=== PATIENT | female | born 1975 | race Caucasian/White ===

== ENCOUNTER 2017-07-30 13:21 | Emergency (ER) | payer MEDICARE ==
[~2017-07-30] VITALS: Ht 162.6 cm; Wt 47.6 kg
[~2017-07-30 13:21] MED LIST: BUSPAR 5MG TAB5 MG PO; CRESTOR5 MG PO; CYMBALTA60 MG PO; OXCARBAZEPINE150 M1 PO
[2017-07-30] MEDS ORDERED: LYRICA50 MG PO (13:55)
--- NOTE | 2017-07-30 14:09 | [facility]gent Treatment [facility] Report ---
History of Present Issue Date/Time Seen by Provider 07/30/17 9818 Visit Reason Pt arrived:Walked Presenting Problem:sore throat and body aches and sinus pressure Location if Accident: Onset of symptoms date/time:/ or onset unknown for:MEDICAL HX UNKNOWN Have you (or family members/close friends) recently traveled outside the [place]? N If Yes, where/when: Have you had exposure to infectious disease within the past month? TB? Other? Specify: c/o "I think strep". sore throat, aches, PND, rhinorrhea, nasal congestion starting yesterday. Sore throat worse last night. Daughter with strep last week. pt thinks she saw white blisters in throat. No known fevers. Hasn't taken or tried anything for symptoms. Source patient Exam Limitations no limitations ALLERGIES Coded Allergies: No Known Allergies (01/15/17) Home Medications Reported Medications DULOXETINE HCL (Cymbalta 60MG) 60 MG PO DAILY Oxcarbazepine (Oxcarbazepine 150MG TAB) 150 MG PO BID Buspirone Hcl (Buspirone HCl) (Unknown Dose) PO UNKNOWN Rosuvastatin Calcium (Crestor) (Unknown Dose) PO QHS Pregabalin (Lyrica 50MG) 50 MG PO TID History Medical History General CAD? No Angina: No CT: No Hypertension? No Hyperlipidemia? Yes CHF? No DVT? No PE? No COPD? No Asthma? No Anemia? No GERD? No Gastric ulcers? No GI Bleed? No Hernia? No Thyroid Problems? No Hypothyroidism? No CVA? No Seizures? No Diabetes? No Renal Insuffiency? No UTI? No Stones? No BPH? No GB Disease: No Nephritic Syndrome? No Asplenia? No Hepatitis? No Sickle Cell Disease? No Arthritis? No Migraines? No Cataracts? No Glaucoma? No MRSA? No HIV? No TB? No Anxiety? Yes Depression? No Cancer? No More? No Immunization HX DT/Tetanus 1-4 Years Ago Surgical Hx Previous Surgery?N Social History Smoking Hx Smoker: Current Every Day Smoker Tobacco: Yes Type Cigarettes Packs/day < 1 Pack Alcohol Alcohol: No Review of Systems All Other Systems Reviewed and Negative Constitutional see HPI Eyes denies drainage ENT see HPI, ear pain ("not pain. Popping and itching). denies: ear discharge, throat swelling. Respiratory cough (mild, intermittent), denies shortness of breath, denies wheezing Cardiovascular denies chest pain Gastrointestinal denies no symptoms reported Skin denies rash Psychiatric/Neurological see HPI Physical Exam Vital Signs Vital Signs Date Time Temp Pulse Resp B/P Pulse O2 O2 Flow FiO2 Ox Delivery Rate 07/30 1352 98.2 79 18 126/78 98 General Appearance normal appearance, no apparent distress Eye Exam - bilateral eye normal exam Ear, Nose, Throat clear fluid bubbles behind jaskaran TMs, no bulging, normal otherwise; nasal congestion; clear rhinorrhea; thick clear PND and cobblestoning Neck non-tender, supple Respiratory Status No: respiratory distress, productive cough, non productive cough. Lung Sounds anterior: lungs clear. posterior: lungs clear. bilateral: lungs clear. Cardiovascular regular rate/rhythm, no peripheral edema, no murmur Neurologic alert Mental status normal mood/affect Skin normal color, warm/dry Lymphatic no adenopathy Medical Decision Making LABS/Meds/Orders Pt receiving controlled substance in ED? No Results/Orders Laboratory Tests 07/30/17 1350: Group A Strep Screen NOT DETECTED Orders Procedure Date/time Status [facility] STREP SCREEN 07/30 1355 Complete Departure Departure Time of Disposition 1433 Disposition DC Home or Self Care(routine) Clinical Impression Primary Impression: Upper respiratory virus Secondary Impressions: Pharyngitis Qualifiers: Pharyngitis/tonsillitis etiology: unspecified etiology Qualified Code: J02.9 - Acute pharyngitis, unspecified Condition STABLE Referrals NO REFERRAL Follow up with primary care IMMEDIATELY for new or worsening symptoms OR no noticeable improvement over the next 48-72 hours. 911 for difficulty breathing or swallowing. Patient Instructions DI for Viral Pharyngitis, DI for Viral Upper Respiratory Infection -- Adult Additional Instructions * No sign of bacterial infection. Likely viral. Virus can take 7-14 days to run their course * Monitor Temp. Tylenol every 4 hours as needed and/or ibuprofen every 6 hours as needed (as long as your primary care doctor has told you that it is ok to take both) for fever/aches/pain. ER if fever no less than 101 despite tylenol and ibuprofen * Encourage fluids, water, gatorade, powerade, pedialyte if infant/toddler/child * warm salt water gargles * warm fluids * sore throat lozenges * sleep elevated * humidifier/vaporizer * flonase 2 sprays each nostril daily but may take 2-3 days to notice improvement with it. * Bromfed may cause drowsiness. Know how it effects you (or your child) before driving, caring for small children, or sending your child to school. No other antihistamines/allergy medications while taking bromfed. * * Your throat swab was sent for culture. Those results are typically sent to your primary care. Be sure to follow up in 2-3 days if no improvement so they can review those results and treat if necessary. If you don't have primary care, I recommend you get one but in the mean time, you will have to return to a walk in clinic. Discharge Counseling Counseled pt/family regarding diagnosis, test results, medications/RX, home care, follow up needs Prescriptions Current Visit Scripts D-METHORPHAN HB/P-EPD HCL/BPM (Bromfed Dm Cough Syrup) 10 ML PO QIDP PRN cough #240 ML Fluticasone Propionate (Flonase 50 Mcg Nasal [place]) 2 SPRAY NA DAILY #1 BOT at 1433
[2017-07-30] MEDS ORDERED: FLONASE 50 MCG16 GM (14:35)
[2017-07-30] MEDS ORDERED: BROMFED DM COU118 ML PO (14:35)
[2017-07-30 14:37] VITALS: BP 126/78
== END 2017-07-30 14:38 | disposition home or self-care (01) ==
LOC: UTC 13:21
DX: J02.8 Acute pharyngitis due to other specified organisms (principal); F17.210 Nicotine dependence, cigarettes, uncomplicated; Z79.899 Other long term (current) drug therapy; E78.5 Hyperlipidemia, unspecified

== ENCOUNTER → 2017-08-17 | Outpatient (CLI) | payer MEDICARE ==
--- NOTE | 2017-08-18 05:35 | RADIOLOGY REPORT PS360 ---
MRI-L-SPINE W/O HISTORY: Low back pain with bilateral leg pain numbness and tingling BILATERAL LOW BACK PAIN W/RT SIDE SCIATICA ORDERING PHYSICIAN: Vladimir Danielson MD PATIENT AGE: 41 years COMPARISON: None TECHNIQUE: Standard multiplanar multiecho sequences are performed without contrast. 3-D MIP and myelographic images are also rendered and reviewed FINDINGS: There is normal alignment. The spinal cord ends at the L1 level. T12-L1, L1-L2, L2-L3, and L3-L4 have an unremarkable appearance. L4-5: Degenerative disc disease with bulging disc along with facet and ligamentum flavum hypertrophy with moderate bilateral lateral recess narrowing and mild bilateral foraminal narrowing. There is a small central disc herniation with inferior extrusion best seen on the sagittal images abutting the medial aspect of both L5 nerve roots. This may contain some minimal calcification or even gas on the left. L5-S1: Unremarkable. Decreased T1 and T2 signal is noted along the lateral aspect of the sacrum on the right inferiorly at the S1 area suggesting an area of bony sclerosis. May be confirmed with plain radiograph. IMPRESSION: 1. Small central disc herniation at L4-L5 with inferior extrusion best seen on the sagittal images abutting the medial aspect of both L5 nerve roots. This may contain some minimal calcification or even gas on the left. There is degenerative disc disease at this level with bulging disc and moderate bilateral lateral recess and foraminal narrowing from facet hypertrophy and the bulging disc 2. Suspect a sclerotic area along the sacrum on the right superiorly at the S1 area which may be confirmed with radiograph if clinically desired etiology is indeterminate.
== END ==
LOC: RAD 14:58
DX: M54.41 Lumbago with sciatica, right side (principal)

== ENCOUNTER → 2017-08-23 | Outpatient (CLI) | payer MEDICARE ==
[~2017-08-23] MED LIST changes: +BROMFED DM COU118 ML PO; +FLONASE 50 MCG16 GM; +LYRICA50 MG PO
[2017-08-23 17:46] LABS: HEMOGLOBIN 14.6 g/dL (12.2-16.2); LYMPH # 2.3 K/mm3 (0.7-4.5); LYMPH % 28.5 % (10-50.0)
[2017-08-23 19:00] LABS: BUN 7 mg/dL (7-18); GFR (ESTIMATED) 109 ML/MIN (59-)
[2017-08-25 06:40] LABS: LH 90.7 mIU/mL (.); Prolactin 10.4 ng/mL (4.8-23.3)
[2017-08-25 07:42] LABS: FSH >200.0 mIU/mL (.)
== END ==
LOC: LAB 17:00
PROVIDERS: Physician Assistant
DX: R23.2 Flushing (principal); Z79.899 Other long term (current) drug therapy